=== PATIENT | male | born 1985 | race Caucasian/White ===

== ENCOUNTER 2022-05-02 18:18 | Emergency (ER) | payer BC, SELFPAY ==
--- NOTE | ~2022-05-02 | XR_ITS ---
EXAMINATION: XR chest 2V Exam Date/Time: 05/02/2022 19:10 CDT HISTORY: chest pain with sob Comparison: 12/23/2018. RESULT: Lines, tubes, and devices: None. Lungs and pleura: Clear. Cardiomediastinal silhouette: Stable. Other: No acute osseous or upper abdominal finding. IMPRESSION: No acute cardiopulmonary process. Reviewed, dictated and finalized at location K.
[2022-05-02 18:42] VITALS: BP 133/88; PULSE 81; RESP 18; TEMP 37.4; O2SAT 100
--- NOTE | 2022-05-02 19:01 | ED.CHESTPAIN ---
HPI - Chest Pain General Stated Complaint: chest pain,sob Time Seen by Provider: 05/02/22 19:13 Mode of arrival: ambulatory Limitations: no limitations History of Present Illness HPI narrative: 36-year-old male presents with concern for anterior chest pain, low-grade fever, fatigue, general malaise, headache. Reports symptoms started Sunday after he returned from vacation in [place]. Reports he took a COVID test on Sunday which was negative and took another COVID test this morning that was negative. He denies any exacerbating factors. Reports pain is relieved with Tylenol and ibuprofen. He denies injury, bruises, rashes, swelling. He denies cough, shortness of breath. MD complaint: chest pain Related Data Home Medications Medication Instructions Recorded Confirmed No Home Medications 05/02/22 05/02/22 Allergies Allergy/AdvReac Type Severity Reaction Status Date / Time prednisone AdvReac Shakiness Verified 05/02/22 19:14 Review of Systems Review of Systems: CONSTITUTIONAL: Reports malaise, fatigue, low-grade fever. EYES: Denies visual changes, redness, or discharge. ENT: Denies rhinorrhea, congestion, sinus pain, otalgia or sore throat. CARDIOVASCULAR: Reports anterior chest pain. Denies palpitations, or edema. RESPIRATORY: Denies cough or dyspnea. GASTROINTESTINAL: Denies abdominal pain, nausea, vomiting, diarrhea SKIN: Denies rash or itching. MUSCULOSKELETAL: Denies back pain, joint pain, or myalgia. NEUROLOGIC: Denies numbness, weakness. Reports headache. All systems reviewed & are unremarkable except as noted in HPI and below PMFSH Past Medical History Medical History Left inguinal hernia Social History Social History Smoking status: Never smoker Second hand tobacco smoke exposure: No Alcohol intake: current Drinks per week: 4 Substance use: never Substance use type: does not use Gender identity (if verbalized by the patient): Male Comments At time of signature, agree with nursing past medical, surgical, social and family history. There is no relevant family history pertinent to the presenting complaint Exam Narrative: GENERAL: Well-appearing, well-nourished, and in no acute distress. HEAD: Normocephalic, atraumatic. EYES: PERRLA, sclera clear, and EOMI. No nystagmus. ENT: Nares clear, turbinates pink, no rhinorrhea or epistaxis. Mucous membranes moist. TM pearly pope with sharp light reflex bilaterally; no tragal tenderness. Oropharynx without erythema or lesions. Tonsils not enlarged and without exudate. NECK: Supple. No lymphadenopathy. CHEST: No respiratory distress. Clear to auscultation. No bony deformities, no asymmetry. Speaks in full sentences. Chest wall tenderness reproducible with sternal rub HEART: Regular rate and rhythm. No murmur heard. Normal peripheral pulses. SKIN: Warm, dry, no visible rash. NEURO: Alert and oriented x3. PSYCH: Normal mood and affect Course Course Emergency Course: Patient is aware of diagnosis, understands and agrees to treatment plan. Anticipatory guidance given. Patient agrees to follow-up as directed and is aware of reasons to seek care at the emergency department. Portions of this record may have been created with voice recognition software Level of Care: Express Care Visit Vital Signs Vital signs: Vital Signs Temperature 99.3 F 05/02/22 18:42 Pulse Rate 81 05/02/22 18:42 Respiratory Rate 18 05/02/22 18:42 Blood Pressure 133/88 05/02/22 18:42 Pulse Oximetry 100 05/02/22 18:42 Oxygen Delivery Room Air 05/02/22 18:42 Temperature 99.3 F 05/02/22 18:42 Pulse Rate 81 05/02/22 18:42 Respiratory Rate 18 05/02/22 18:42 Blood Pressure 133/88 05/02/22 18:42 Pulse Oximetry 100 05/02/22 18:42 Oxygen Delivery Room Air 05/02/22 18:42 Reviewed. MDM - Chest Pain MDM Narrative Medical dec
--- NOTE | 2022-05-02 19:07 | ECG_ITS ---
Measurements Intervals [place] Rate: 78 P: 68 [place]: 146 QRS: 25 QRSD: 98 T: 44 QT: 346 QTc: 396 Interpretive Statements SINUS RHYTHM BASELINE ARTIFACT NORMAL ECG COMPARED TO ECG 12/23/2018 22:50:46 HEART RATE HAS DECREASED AND ST AND T-WAVE ABNORMALITIES NO LONGER APPRECIATED Electronically Signed On 05-03-2022 12:22:08 CDT by Jose Antonio Wei M.D.
== END 2022-05-02 19:43 | disposition home or self-care (01) ==
PROVIDERS: Emergency Provider Nurse Practitioner; PCP Family Medicine
DX: R07.89 Other chest pain (principal); B34.9 Viral infection, unspecified
CPT/HCPCS: 71046; 93005; 99213; G0463

== ENCOUNTER 2022-08-13 08:54 | Emergency (ER) | payer BC, SELFPAY ==
--- NOTE | ~2022-08-13 | XR_ITS ---
EXAMINATION: XR hip RT 2V w AP pelvis INDICATION: Right hip pain TECHNIQUE: AP view of the pelvis and two views of the right hip are obtained. COMPARISON: None FINDINGS: Bone alignment is normal. There is no fracture. Phleboliths are noted in the pelvis. IMPRESSION: 1. No acute osseous abnormality. Reviewed, dictated and finalized at location A. TORCH BRAZIER
[2022-08-13 09:03] VITALS: BP 124/91; PULSE 83; RESP 16; TEMP 36.3; O2SAT 100
--- NOTE | 2022-08-13 09:40 | ED.LOWEXIN ---
HPI - Extremity Injury (Lower) General Chief Complaint: Extremity Injury, Lower Stated Complaint: rt side groin and hip pain Time Seen by Provider: 08/13/22 08:57 Source: patient Mode of arrival: ambulatory Limitations: no limitations History of Present Illness HPI Narrative: Mr. Syed is a 36-year-old male patient presenting to the clinic today with complaints right hip/right groin pain. He reports that he was playing hockey last Sunday and was hit and fell on the ice and developed right hip pain. He reports that his pain has moved more into the right groin as well. States that the pain is worse when he is sitting still and trying to get up however when he gets up and moving it improved somewhat but is pretty constant. Currently rates his pain a 3/10. States that when he touches a certain point on the right hip is since pain shooting into right groin Related Data Allergies Allergy/AdvReac Type Severity Reaction Status Date / Time prednisone AdvReac Shakiness Verified 05/02/22 19:14 Review of Systems Review of Systems: Pertinent positives per HPI. Patient denies any fever, chills, rash, headache, visual changes, dizziness, cough, runny nose, sore throat, shortness of breath, chest pain, palpitations, nausea, vomiting, diarrhea, constipation, abdominal pain, or any urinary issues. PMFSH Past Medical History Medical History Left inguinal hernia Social History Social History Smoking status: Never smoker Second hand tobacco smoke exposure: No Alcohol intake: current Drinks per week: 4 Substance use: never Substance use type: does not use Gender identity (if verbalized by the patient): Male Comments At the time of my signature, I reviewed and agree with the nursing past medical, surgical, social, and family history. There is no relevant family history pertinent to the patient complaint. Exam Narrative: General: Well-developed, well nourished, in no apparent distress Head: Normocephalic, atraumatic. Cardio: Regular rate and rhythm, s1 and s2 normal, no murmur appreciated. Resp: Clear to auscultation bilaterally, no rhonchi, rales, wheezing or rubs. Musculoskeletal: No deformity, no bruising or swelling noted, tender to palpation over lateral greater trochanter, guarding and pain with external rotation of the right hip, muscle strength strong and equal, peripheral pulse strong, no edema, no cyanosis, slow cautious gait and station Course Course Emergency Course: Portions of this record may have been created with voice recognition software. Level of Care: Express Care Visit Vital Signs Vital signs: Vital Signs Temperature 36.3 C L 08/13/22 09:03 Pulse Rate 83 08/13/22 09:03 Respiratory Rate 16 08/13/22 09:03 Blood Pressure 124/91 H 08/13/22 09:03 Pulse Oximetry 100 08/13/22 09:03 Oxygen Delivery Room Air 08/13/22 09:03 Temperature 36.3 C L 08/13/22 09:03 Pulse Rate 83 08/13/22 09:03 Respiratory Rate 16 08/13/22 09:03 Blood Pressure 124/91 H 08/13/22 09:03 Pulse Oximetry 100 08/13/22 09:03 Oxygen Delivery Room Air 08/13/22 09:03 Vital signs reviewed MDM - Extremity Injury (Lower) MDM Narrative Medical decision making narrative: At the time of visit patient is resting comfortably on the exam table. X-ray was per for and was negative for any fracture or malalignment of the right hip or pelvis. I suspect patient has hip contusion, soft tissue injury. Supportive measures were discussed with the patient he voiced understanding of discharge instructions. Recommended if symptoms persist may be following up with his PCP for physical therapy. Prescription for naproxen was sent to the pharmacy Differential Diagnosis Differential diagnosis: Likely other (Hip fracture, pelvic fracture, hip contusion) Discharge Plan Discharge Clinical Impress
== END 2022-08-13 10:23 | disposition home or self-care (01) ==
PROVIDERS: Emergency Provider Nurse Practitioner Family; PCP Family Medicine
DX: S70.01XA Contusion of right hip, initial encounter (principal); W19.XXXA Unspecified fall, initial encounter; Y93.22 Activity, ice hockey
CPT/HCPCS: 73502; 99213; G0463

== ENCOUNTER 2022-08-17 11:10 | Outpatient (CLI) | payer BC, SELFPAY ==
--- NOTE | ~2022-08-17 | XR_ITS ---
EXAMINATION: XR lumbar spine 2-3V DATE: 08/17/2022 11:41 INDICATION: Unspecified injury of unspecified hip, initial encounter. Right hip pain. TECHNIQUE: 3 views of lumbar spine were obtained. COMPARISON: None. FINDINGS: Bone alignment is normal. Vertebral body heights and intervertebral disc heights are normal . There is multilevel mild facet joint osteoarthritis. IMPRESSION: 1. Mild lumbar facet joint osteoarthritis. Reviewed, dictated and finalized at location A. CAL SCREENER
--- NOTE | ~2022-08-17 | XR_ITS ---
EXAMINATION: XR hip BI 2V w AP pelvis DATE: 08/17/2022 11:41 INDICATION: Unspecified injury of unspecified hip, initial encounter. TECHNIQUE: An anteroposterior view of the pelvis, 3 views of right hip, and 2 views of left hip were obtained. COMPARISON: Pelvis and hip radiograph 08/13/2022 FINDINGS: There is an oblique subcapital fracture of right femoral neck. The distal fracture fragment demonstrates impaction and 5 mm lateral displacement. There is mild osteoarthritis of the hips sudha cterized by tiny osteophytes. IMPRESSION: 1. Subcapital fracture of right femoral neck. 2. Mild osteoarthritis of the hips. Reviewed, dictated and finalized at location A. L ASSOCIATE
== END 2022-08-17 11:11 | disposition home or self-care (01) ==
LOC: ANHIMG 11:14
PROVIDERS: PCP Family Medicine; Visit Provider Physician Assistant
DX: M54.9 Dorsalgia, unspecified (principal); S79.919A Unspecified injury of unspecified hip, initial encounter; X58.XXXA Exposure to other specified factors, initial encounter; M51.36 Other intervertebral disc degeneration, lumbar region; M16.0 Bilateral primary osteoarthritis of hip
CPT/HCPCS: 72100; 73521